=== PATIENT | male | born 1985 | race Caucasian/White ===

== ENCOUNTER 2025-03-13 15:58 | Emergency (ER) | payer OTHER, SELFPAY ==
[2025-03-13 16:13] VITALS: BP 123/65; PULSE 59; RESP 12; TEMP 36.4; O2SAT 98; BMI 25.5
--- NOTE | 2025-03-13 17:20 | ED_ITS ---
HPI - Wound/Laceration <Raquel Dickens PA-C - Last Filed: 03/13/25 20:10> General Chief Complaint: Wound/Laceration Stated Complaint: L Hand Splinter Time Seen by Provider: 03/13/25 16:35 Source: patient Mode of arrival: Ambulatory History of Present Illness HPI narrative: Mr. Becerra is a very pleasant 39-year-old male with no reported past medical history presents to the emergency department for left hand wound x2 days. Patient states that 2 days ago he was wearing gloves while taking a fence post. He removed his gloves and noticed that he had an open blister on his left palm. He was applying Neosporin to it however today he noticed a red streak up his right forearm which prompted his ER arrival. States that the palm of the right hand and the streak up his arm is slightly tender but otherwise he has not having any significant pain. He denies fevers, chills, chest pain, shortness of breath, nausea, vomiting, flu-like symptoms or any other concerns. He still has full range motion of the hand. No history of cellulitis or MRSA. He is active [employer]. Related Data Previous Rx's ?Medication ?Instructions ?Recorded doxycycline hyclate 100 mg capsule 100 mg PO BID 7 day s #14 caps 03/13/25 Allergies Allergy/AdvReac Type Severity Reaction Status Date / Time No Known Drug Allergies Allergy Verified 03/13/25 16:13 Review of Systems <Raquel Dickens PA-C - Last Filed: 03/13/25 20:10> Review of Systems ROS Unobtainable: All systems reviewed & are unremarkable except as noted in HPI and below Patient History <Raquel Dickens PA-C - Last Filed: 03/13/25 20:10> Social History Smoking Status: Never smoker Smoking Status: Never smoker Exam <Raquel Dickens PA-C - Last Filed: 03/13/25 20:10> Narrative Exam Narrative: GENERAL: 39 year old patient appears stated age. Well-developed patient, in no acute distress. HEAD: Atraumatic. Normocephalic. NECK: Trachea midline. Cervical ROM intact. CARDIOVASCULAR: Regular rate and rhythm. RESPIRATORY: ?Nonlabored respirations. ?Speaking in clear, full sentences. ?Clear to auscultation. Breath sounds equal bilaterally. No wheezes, rales, or rhonchi. ? EXTREMITIES: On the left palm, there is a 2 cm round open blister with skin flap. There is erythema surrounding this area and 1 single streak of erythema extending up to the proximal forearm. There is mild reported tenderness along the streak of erythema. No purulent drainage from the wound. Full range of motion of the hand. Brisk capillary refill in the fingertips and strong radial pulse. NEURO: AOx3. ?Clear speech. ?Moves all 4 extremities appropriately. SKIN: Left palm wound and streaking erythema described above. Initial Vital Signs Initial Vital Signs: Vital Signs Temperature 97.6 F 03/13/25 16:13 Pulse Rate 59 L 03/13/25 16:13 Respiratory Rate 12 03/13/25 16:13 Blood Pressure 123/65 03/13/25 16:13 Pulse Oximetry 98 03/13/25 16:13 Oxygen Delivery Method Room Air 03/13/25 16:13 <Eloina Angelo DO - Last Filed: 03/15/25 18:46> Initial Vital Signs Initial Vital Signs: Vital Signs Temperature 97.6 F 03/13/25 16:13 Pulse Rate 59 L 03/13/25 16:13 Respiratory Rate 12 03/13/25 16:13 Blood Pressure 123/65 03/13/25 16:13 Pulse Oximetry 98 03/13/25 16:13 Oxygen Delivery Method Room Air 03/13/25 16:13 Course <Raquel Dickens PA-C - Last Filed: 03/13/25 20:10> Orders Ordered: Discontinued Medications Bacitracin (Bacitracin Oint 0.9 Gm Pckt) 1 applic TOP NOW ONE Stop: 03/13/25 17:37 Last Admin: 03/13/25 17:46 Dose: 1 applic Documented By: SELIN Doxycycline Hyclate (Doxycycline Hyclate 100 Mg Tablet) 100 mg PO NOW ONE Stop: 03/13/25 17:37 Last Admin: 03/13/25 17:42 Dose: 100 mg Documented By: SELIN Vital Signs Vital signs: Vital Signs - 8 hr 03/13/25 16:13 03/13/25 18:00 Temperature 97.6 F Pulse Rate 59 L 49 L Respiratory Rate 12 14 Blood Pressure 123/65 115/53 L Pulse Oximetry 98 96 Oxygen Delivery Method Room Air Room Air <Eloina Angelo DO - Last Filed: 03/15/25 18:46> Orders Ordered: Discontinued Medications Bacitracin (Bacitracin Oint 0.9 Gm Pckt) 1 applic TOP NOW ONE Stop: 03/13/25 17:37 Last Admin: 03/13/25 17:46 Dose: 1 applic Documented By: SELIN Doxycycline Hyclate (Doxycycline Hyclate 100 Mg Tablet) 100 mg PO NOW ONE Stop: 03/13/25 17:37 Last Admin: 03/13/25 17:42 Dose: 100 mg Documented By: SELIN Vital Signs Vital signs: Vital Signs - 8 hr 03/13/25 16:13 03/13/25 18:00 Temperature 97.6 F Pulse Rate 59 L 49 L Respiratory Rate 12 14 Blood Pressure 123/65 115/53 L Pulse Oximetry 98 96 Oxygen Delivery Method Room Air Room Air MDM - Wound/Laceration <Raquel Dickens PA-C - Last Filed: 03/13/25 20:10> MDM Narrative Medical decision making narrative: 39-year-old male with no reported past medical history presents to the emergency department for left hand wound x2 days. Differential diagnosis includes but is not limited to blister, wound, cellulitis, abscess, streaking lymphangitis, etc. On exam patient is in no acute distress, nontoxic-appearing, all vital signs within normal limits. He has not experiencing any flu-like symptoms, is afebrile and not tachycardic. He has what appears to be an open blister/wound in the left palm that has now resulted in a singular streak of lymphangitis. His Tdap is up-to-date. We will proceed with cleansing of the wound, bacitracin, dressing and doxycycline for cellulitis. Recommended NSAIDs to help with inflammation, rice therapy, completion of full course of antibiotics. Hand was soaked in warm water with chlorhexidine, the wound was then cleansed, a piece of skin was debrided, it was irrigated, and bacitracin and a dressing was applied. First dose of antibiotics given in the ED. Discussed strict ED return precautions and proper wound care. Patient verbalized understanding of all information agreeable with the plan. He is stable for discharge home. Discharge Plan Departure Patient Disposition: Home Clinical Impression: Cellulitis of hand, left, Lymphangitis of upper extremity Open wound of left hand Qualifiers: Encounter type: initial encounter Open wound type: unspecified Foreign body presence: without foreign body Qualified Code(s): S61.402A - Unspecified open wound of left hand, initial encounter Instructions: DI for Wound Infection Activity Restrictions/Additional Instructions: Dear Mr. Becerra, Thank you for coming to the emergency department. Today you were evaluated for a wound of your left hand causing streaking up the arm. At this time your exam is consistent with cellulitis which is a skin and soft tissue infection. Please complete the full course of oral antibiotics, keep the hand clean and covered with bacitracin and a dressing at all times, and avoid soaking in any water or getting it dirty/contaminated. Please return to the ER immediately if you develop any new or worsening symptoms, fevers, flu-like symptoms, worsening redness or swelling of the arm or any other concerns. Please take Ibuprofen (Motrin/Advil) or Acetaminophen (Tylenol) for pain. These are available over the counter. You may take Ibuprofen 600 mg every 8 hours with food for pain. You may also take Acetaminophen 650 mg every 4-6 hours for pain. Do not exceed 3000 mg of Tylenol a day as this can cause liver damage. Do not drink alcohol with either of these medications. Please follow up with your primary care doctor within the next 2-3 days for ER follow-up. (If you do not have a PCP you can call [phone]. ?to schedule an appointment with an [facility] Primary Care Provider) IF YOU DEVELOP ANY NEW OR WORSENING SYMPTOMS, RETURN TO THE ER! Please read the attached instructions, they highlight more specific treatments and interventions for you at home. Thank you for letting me participate in your care, Raquel Dickens PA-C Prescriptions: New doxycycline hyclate 100 mg capsule 100 mg PO BID 7 Days Qty: 14 0RF Stand Alone Forms: Patient Portal/API ED Sign-out <Eloina Angelo DO - Last Filed: 03/15/25 18:46> Cosign ED Attending Chapinature Attestation: I was immediately available in the department for consultation.
[2025-03-13] MEDS: DOXYCYCLINE HYCLATE 100 MG TABLET PO (17:42)
[2025-03-13] MEDS: BACITRACIN OINT 0.9 GM PCKT 1 APPLIC TOP (17:46)
[2025-03-13 18:00] VITALS: BP 115/53; PULSE 49; RESP 14; O2SAT 96
== END 2025-03-13 18:01 | disposition home or self-care (01) ==
PROVIDERS: Emergency Provider Physician Assistant
DX: S61.402A Unspecified open wound of left hand, initial encounter (principal); L03.114 Cellulitis of left upper limb; X58.XXXA Exposure to other specified factors, initial encounter; Y93.89 Activity, other specified
CPT/HCPCS: 99283